=== PATIENT | female | born 1980 | race Caucasian/White ===

== ENCOUNTER 2017-01-11 16:35 | Emergency (ER) | payer OTHER ==
[~2017-01-11] VITALS: Ht 165.1 cm; Wt 136.4 kg
[2017-01-11 16:51] VITALS: BP 143/95; PULSE 103; RESP 22; O2SAT 99
--- NOTE | 2017-01-11 17:38 | DRSVH ---
PROCEDURE: X-RAY CHEST, TWO VIEWS ([id number]) INDICATIONS: 36-year-old female with cough. TECHNIQUE: 2 views of the chest were acquired. COMPARISON: None. FINDINGS: Surgical changes and devices: None. Lungs and pleura: No pleural effusions or pneumothorax. Lungs are clear. Mediastinum: Mediastinal contours are normal. Heart size is normal. Bones and chest wall: No suspicious bony abnormalities. Soft tissues appear unremarkable. IMPRESSION: No acute cardiopulmonary disease. Dictated by: Maciej Randhawa M.D. on 01/11/2017 at 17:36 Approved by: Maciej Randhawa M.D. on 01/11/2017 at 17:37
--- NOTE | 2017-01-11 18:06 | ED.REPORT ---
HPI-General Illness Date of Service Jan 11, 2017 ED Provider: Del Capone MD A 36 year old female with a history of asthma presents to the ED complaining of dyspnea that began 2 weeks ago. Associated symptoms include nasal congestion and wheezing. Patient was sent from Urgent Care after breathing treatments were unsuccessful. She has been experiencing recent exacerbation of her seasonal allergies. Patient has been using an albuterol inhaler with a spacer with no relief. She denies history of PE, blood clot, recent surgeries or long periods of immobilizations. Nursing Notes Stated Complaint: SORE THROAT, COUGH,WHEEZING Chief Complaint: Respiratory Distress Nursing Notes Reviewed: Yes Allergies: Coded Allergies: oxycodone (Verified Allergy, Unknown, Vomiting and blood shot eyes, 01/11/17 ) Scheduled Ipratropium/Albuterol Sulfate (Iprat-Albut 0.5-3(2.5) mg/3 mL Inhalant Soln) 3 Ml Ampul.neb 3 ML IH Q6 Prednisone (PredniSONE) 20 Mg Tablet 40 MG PO DAILY General Time Seen by MD: 17:44 Chief Complaint Other (SOB) Hx Obtained From: Patient Arrived By: Walk-in Sudden in Onset?: No Onset Occurred: More than a week ago... (2 weeks) Symptom Duration: Since onset Location: : Chest Quality: Pressure Radiation: : Does not radiate Severity: Current: Mild Severity: Maximum: Mild Associated with: Reports: Chest pain (chest pressure), Difficulty breathing, Nasal discharge, Shortness of breath Pertinent Negative: Pt denies other symptoms Recent Healthcare: No recent hospitalization, Recent doctor visit Past Medical History Past Medical History Asthma; otherwise healthy Denies: COPD Past Surgical History None reported. Smoking History Unknown if Ever Smoker Social History Other Social History: Good social support, Local resident Ambulatory Status Independent Review of Systems Full Review of Systems Constitutional: Denies: Chills, Fever Ears / Nose / Throat: Reports: Nasal congestion Respiratory: Reports: Dyspnea on exertion, Shortness of breath, Wheezing Cardiovascular: Reports: Chest pain (Chest pressure) GI: Denies: Nausea, Vomiting Neurologic: Denies: Change LOC Complete sys rev & neg: except as marked. Physical Exam Vital Signs Vital Signs Date Time Temp Pulse Resp B/P Pulse Ox O2 Delivery O2 Flow Rate FiO2 01/11/17 20:07 36.7 93 20 127/89 96 Room Air 4/1/17 19:10 89 22 152/99 97 Room Air 01/11/17 18:21 92 20 100 Room Air 01/11/17 16:51 36.4 103 22 143/95 99 Room Air Initial VS: Reviewed Head / Eyes: Atraumatic, Normocephalic, PERRL Neck: Supple, Non-tender, Full range of motion Extremities: Vascular intact, Neuro intact, No swelling, No tenderness Skin: Warm, Dry, No cyanosis Neurologic: Alert, Oriented, Nonfocal Psychiatric: Mood/affect normal, Behavior normal, Normal thought content General/Constitutional: Awake, Alert, No acute distress ENT: Atraumatic, Airway patent, Mucous membranes moist, Pharynx NL, No peritonsillar abscess (No tonsillar swelling) Pharynx / Tonsils / Uvula: Negative: Tonsillar exudate L, Tonsillar exudate R Respiratory / Chest: Atraumatic, No stridor Wheezing / Retractions: Positive: Prolonged exp phase, Wheezing expiratory Cardiovascular: Heart rate NL, Regular rhythm, Heart sounds NL, No gallop, No murmurs, No rubs, Pulses = bilaterally Abdomen: Atraumatic, Soft, Non-tender, No distention Interpretation & Diagnostics X-Ray Chest Interpretation Chest Xray Interpretation: IMPRESSION: No acute cardiopulmonary disease. Dictated by: Maciej Randhawa M.D. on 01/11/2017 at 17:36 Interpretation / Wet Read by: Interpret - Radiologist Re-Eval/Medical Decision Med Decision/Clinical Course Patient is a 36-year-old female with a history of asthma who presents to the emergency department complaining of wheezing and shortness of breath. Here in the emergency department she has diffuse expiratory wheezing with prolonged expiratory phase but she is without stridor or significant respiratory distress. She has good oxygen saturation on room air. Upon evaluation she is afebrile and hemodynamically stable. CXR: Obtained, reviewed and interpreted by myself shows no evidence of infiltrates, effusions or pneumothorax. Cardiac and mediastinal silhouette normal. No bony or soft tissue abnormalities. Patient was treated with DuoNeb reevaluated thereafter. She reported significant symptomatic improvement. Repeat auscultation of her lungs demonstrated increased air movement with reduced wheezing. She maintained good oxygen saturation on room air. No evidence of pneumonia, pneumothorax, pulmonary edema. Patient is low risk for pulmonary embolism examination reveals no findings suggestive of DVT. In the setting of the overall clinical picture I do not feel that PE workup is indicated. Patient discharged with a 5 day course of prednisone and advised to use albuterol inhaler with spacer scheduled every 2-4 hours for the next 48 hours. Refills also provided for her home nebulizer. She will follow up closely with her primary care physician.Prior to discharge follow-up and return precautions were reviewed in detail with the patient who verbalized understanding and agreement with the plan. The patient was discharged in stable condition. Time of Eval: 19:22 Patient Status: Condition improved Re-Evaluation/Progress Note: Patient is rechecked. She reports that her disccomfort has improved. She is informed of her X-ray results and diagnosis. All of the patient's questions are addressed. She understands and agrees with the treatment plan. Counseled Regarding: Diagnosis, Lab results, Need for follow-up, When/why to return to ED Discharge & Departure Primary Impression: Asthma exacerbation Additional Impressions: Wheezing Shortness of breath Disposition: Home Discharge Condition All VS Reviewed: Yes Condition: Improved Patient Instructions: Asthma (ED) Additional Instructions: Thank you for seeking care at the emergency room. It is difficult for us to make definitive diagnoses in the ED but we believe that your symptoms are due to asthma exacerbation. Our primary goal today in the ED was to evaluate you for any life-threatening conditions. Your evaluation was reassuring. You will be discharged with a prescription for prednisone. Please take as directed. Use albuterol spacer every 2-3 hours until breathing improves, then use as needed. You should follow-up with your primary doctor in the next week for a recheck. You should return to the ED immediately if you develop any difficulty speaking, difficulty getting air into your lungs, lightheadedness, weakness or any other concerning signs or symptoms. Thank you for letting us partake in your care today. Referrals: [facility] Scribe Attestation Portions of this note were transcribed by Mamadou Stevens. I, Dr. Capone personally performed the history, physical exam and medical decision-making; I reviewed and confirmed the accuracy of the information in the transcribed note. Signed by: Roseann Bain, 01/11/171999. Del Capone MD Jan 11, 2017 18:06 MAMADOU STEVENS Jan 11, 2017 18:30
[2017-01-11 18:21] VITALS: PULSE 92; RESP 20; O2SAT 100
[2017-01-11] MEDS ORDERED: PRE20 PO (18:32)
[2017-01-11] MEDS ORDERED: Albuterol-Ipratropium 3 mL Inhalation Solution NEB ONE (18:35)
[2017-01-11 19:10] VITALS: BP 152/99; PULSE 89; RESP 22; O2SAT 97
[2017-01-11] MEDS ORDERED: Albuterol HFA 60 Puff 8 Gm Inhaler INHALATION PRN (19:30)
[2017-01-11] MEDS ORDERED: IPRA3AMP IH (20:05)
[2017-01-11 20:07] VITALS: BP 127/89; PULSE 93; RESP 20; O2SAT 96
== END 2017-01-11 20:07 | disposition home or self-care (01) ==
LOC: SED 16:35
DX: J45.901 Unspecified asthma with (acute) exacerbation (principal); Z88.5 Allergy status to narcotic agent
CPT/HCPCS: 71020; 94640; 94664; 99284; J7620